=== PATIENT | male | born 1955 | race Caucasian/White ===

== ENCOUNTER 2017-11-23 15:49 | Observation (INO) ==
[2017-11-23 17:07] LABS: Basophils # 0.1 K/mcL (0.0-0.2); Basophils % 1.4 %; Eosinophils # 0.7 K/mcL (0.0-0.6); Eosinophils % 8.2 %; Hemoglobin 15.5 g/dL (12.9-16.9); Immature Granulocytes % 0.8 % (0-4); Lymphocytes # 2.1 K/mcL (0.6-4.6); Lymphocytes % 24.8 %; Mean Corpuscular Volume 91.1 fL (83.0-100.0); Monocytes # 0.9 K/mcL (0.0-1.3); Monocytes % 10.3 %; Neutrophils # 4.5 K/mcL (1.6-8.9); Platelet Count 264 K/mcL (140-400); Red Blood Count 5.16 M/mcL (4.19-5.50); Segmented Neutrophils % 54.5 %
[2017-11-23 17:12] LABS: BUN/Creatinine Ratio 11 (6-26); Blood Urea Nitrogen 12 mg/dL (6-20); Calcium 9.3 mg/dL (8.6-10.3); Carbon Dioxide 29 mEq/L (23-29); Chloride 109 mEq/L (98-107); Glucose 116 mg/dL (70-105); Osmolality,Calculated 295 (280-300); Potassium 4.7 mEq/L (3.5-5.1); Sodium 142 mEq/L (136-145); Troponin I < 0.03 ng/mL (< 0.04); eGFR For African Americans > 60 (> 60); eGFR For Non-African Americans > 60 (> 60)
--- NOTE | 2017-11-23 17:31 | Emergency Department Note ---
Disposition Clinical Impression: Unsteady Disposition: Admitted As Inpatient Condition: Fair Dizziness HPI - General Chief Complaint: ED Dizziness Stated Complaint: dizziness Time Seen by Provider: 11/23/17 15:58 Source: patient Mode of arrival: ambulatory Limitations: no limitations Nursing Notes Reviewed: Yes Vital Signs Reviewed: Yes - History of Present Illness HPI Narrative: 61 yo M reprots to the ED c/o unsteadiness on his feet since waking up this morning. Patient reports being unsteady on his feet as soon as his feet hit the floor getting out of bed. He denies focal weakness, numbness, or tingling, diplopia, slurred speech. He reports blurry vision, and feeling like he was drunk but denies any ETOH consumption. He reports symptoms are getting better, but still persist. Still unsteady feeling when sitting still, but worse with movement/when on his feet. He reports similar sxs years ago with an inner ear infection. He states that the room was spinning in the morning, but is no longer spinning, but still feels unsteady. Patient went to his pcp this afternoon and his pcp sent him to ED for further testing with concerns of possible TIA. Pt Subjective Complaint: dizziness, difficulty walking, other (unsteadiness on his feet) Onset (ago): hour(s) (since waking this morning.) Timing: awoke with symptoms Description: off-balance Worsens with: movement Associated symptoms: Reports: ataxia, vision changes (blurry vision). Denies: chest pain, confusion, fever, chills, shortness of breath, syncope, nausea, vomiting - Related Data Allergies Allergy/AdvReac Type Severity Reaction Status Date / Time No Known Allergies Allergy Verified 11/23/17 15:54 Past Medical History - Past Medical History Medical history: Reports: hyperlipidemia, RA - Social History Smoking Status: Never smoker Alcohol use: Reports: none Drug use: Reports: none Physical Exam - General Limitations: no limitations General appearance: alert, in no apparent distress - Head Head exam: atraumatic, normocephalic - Eye Eye exam: Present: PERRL, EOMI, nystagmus (left beating) - ENT ENT exam: normal oropharynx, mucous membranes moist, TM's normal bilaterally, normal external ear exam - Neck Neck exam: Present: full ROM, trachea midline - Chest Chest inspection: Present: symmetric chest wall rise. Absent: tenderness - Respiratory Respiratory exam: Present: normal lung sounds bilaterally. Absent: respiratory distress - Cardiovascular Cardiovascular exam: Present: regular rate, normal rhythm - Abdominal Exam Abdominal exam: Present: soft, Non-Tender - Extremities Exam Extremities exam: Present: full ROM. Absent: tenderness - Neurological Exam Neurological exam: Present: alert, oriented X3, CN II-XII intact, motor sensory deficit, reflexes normal, other (Finger to nose and heel to bland intact, Rapid alternating movements in tact. no pronator drift. Patient becomes unblanced during rhomberg testing. ) - Psychiatric Psychiatric exam: Present: normal affect, normal mood - Skin Skin exam: Present: warm, dry Course - Reevaluation(s) Reevaluation #1: CT head normal, lab work normal. Discussed admission with patient for further stroke work up rule out. Patient refusing. Reevaluation #2: Rediscussed admission with patient. Patient consents for admission. - Consultations Consultation #1: Discussed case with communication equipment mechanic neurologist. He strongly advises patient stay for admission and work up. Requesting CTA head. if being discharge AMA Time: 17:36 Vital Signs Temperature 97.9 F 11/23/17 15:51 Pulse Rate 86 11/23/17 15:51 Respiratory Rate 14 11/23/17 15:51 Blood Pressure 122/81 11/23/17 15:51 O2 Sat by Pulse Oximetry 94 11/23/17 15:51 Temperature 97.9 F 11/23/17 15:51 Pulse Rate 86 11/23/17 15:51 Respiratory Rate 14 11/23/17 15:51 Blood Pressure 122/81 11/23/17 15:51 O2 Sat by Pulse Oximetry 94 11/23/17 15:51 Oxygen Delivery Oxygen Delivery Room Air Dizziness - MDM Narrative Medical decision making narrative: Patient's presentation is concerning for CVA/TIA. CT head normal, lab work normal. Will admit for full work up. - Differential Diagnosis Likely: benign paroxysmal positional vertigo, cerebrovascular accident, acute vestibular neuronitis, transient cerebral ischemia, cerebellar infarct - Lab Data Result diagrams: 11/23/17 16:38 11/23/17 16:38 Lab Results 11/23/17 11/23/17 Range/Units 16:38 16:38 WBC 8.3 (4.3-11.1) K/mcL RBC 5.16 (4.19-5.50) M/mcL Hgb 15.5 (12.9-16.9) g/dL Hct 47.0 (37.5-50.1) % MCV 91.1 (83.0-100.0) fL MCH 30.0 (28.0-33.3) pg MCHC 33.0 (31.6-35.5) g/dL RDW 14.0 (11.5-14.5) % Plt Count 264 (140-400) K/mcL MPV 10.0 (9.4-12.4) fL Immature Gran % 0.8 (0-4) % Seg Neutrophils % 54.5 % Lymphocytes % 24.8 % Monocytes % 10.3 % Eosinophils % 8.2 % Basophils % 1.4 % Neutrophils # 4.5 (1.6-8.9) K/mcL Lymphocytes # 2.1 (0.6-4.6) K/mcL Monocytes # 0.9 (0.0-1.3) K/mcL Eosinophils # 0.7 H (0.0-0.6) K/mcL Basophils # 0.1 (0.0-0.2) K/mcL Sodium 142 (136-145) mEq/L Potassium 4.7 (3.5-5.1) mEq/L Chloride 109 H (98-107) mEq/L Carbon Dioxide 29 (23-29) mEq/L BUN 12 (6-20) mg/dL Creatinine 1.14 (0.70-1.30) mg/dL Est GFR ( Amer) > 60 (> 60) Est GFR (Non-Af Amer) > 60 (> 60) BUN/Creatinine Ratio 11 (6-26) Glucose 116 H (70-105) mg/dL Calculated Osmolality 295 (280-300) Calcium 9.3 (8.6-10.3) mg/dL Troponin I < 0.03 (< 0.04) ng/mL
[2017-11-23] MEDS ORDERED: Isovue-370 500 ML INFUS..BTL IV ONE (17:35)
[2017-11-23] MEDS ORDERED: Naloxone 0.4 MG/ML INJ IVP PRN (22:43)
[2017-11-23] MEDS ORDERED: Acetaminophen 325 MG TABLET PO PRN (22:43)
--- NOTE | 2017-11-23 22:56 | Internal Med History&Physical ---
Date of Encounter: 11/23/17 Time of Encounter: 21:30 Internal Medicine - H&P: HPI Chief complaint: vertigo; dizziness Admitted From: Emergency Dept Plans for Post Hospital Care: Home History of present illness: Mr. Nguyễn is a 61 year old male who presents to ER with complaints of sudden onset of vertigo this morning. He awoke from bed and stood up and felt as although the room was spinning on him. He had to lie down and his symptoms resolved several minutes thereafter. Upon standing, symptoms recurred again and he was unable to get ready and prepare for work. He therefore called in sick to work. He tried to "sleep it off". However, symptoms persisted and he came to ER for evaluation. Workup in ER was negative, including CT of the head and CT angiogram of the head. He was therefore admitted to hospitalist service for further workup and care. Unfortunately, patient never did have an EKG performed in the ER despite his symptoms noted above and bradycardia I noted. Upon my assessment of the patient, he is in no distress and resting in bed comfortably. However, if I sit him up, he does become symptomatic again as before, and he does have some subtle nystagmus. He denies any chest pain, shortness of breath, palpitations, and racing heartbeats. He denies any vomiting or diarrhea. He has some sinus congestion. He denies any numbness, weakness, or paralysis. He denies any dysarthria or any problems swallowing foods. He has had vertigo before in his 20s, and he feels as though he has recurrence of vertigo again now. As I examine him and assess him, I noticed on telemetry that he is having runs of bradycardia with heart rate in the 50s and appears to be in sinus rhythm. However, there is no EKG to confirm sinus bradycardia. He denies any history of heart disease or any dysrhythmias. Past Med Surg Social Fam HX - Past Medical History Attestation: Yes The following information was validated with the patient. Source: patient, old records reviewed Medical history: hyperlipidemia, RA Psychiatric history: no psych history - Past Surgical History Surgical History: other (chest tubes for spontaneous PTX) - Social History Smoking Status: Never smoker Alcohol use: none Drug use: none Occupational status: employed Current living situation: Home, With Family Activity Level: Independent ambulation Recent Out of Country Travel Within the Last 8 Weeks: No - Family History Mother Hx Family Cardiac Disorders: No Hx Family Neurologic Disorders: No Father Hx Family Cardiac Disorders: No Hx Family Neurologic Disorders: No Internal Medicine - H&P: Meds Albuterol Sulfate [Proair Hfa] 2 puff IH Q4H PRN 11/23/17 [History] Budesonide/Formoterol 160/4.5 [Symbicort 160/4.5] 2 puff IH BIDR 11/23/17 [ History] Celecoxib [Celebrex] 200 mg PO DAILY 11/23/17 [History] Ezetimibe/Simvastatin [Vytorin 10-20 mg Tablet] 1 tab PO DAILY 11/23/17 [History ] Folic Acid 1 mg PO DAILY 11/23/17 [History] InFLIXimab [Remicade] 100 mg IVPB AD 11/23/17 [History] Methotrexate [Methotrexate] 0.8 ml IJ QWEEK 11/23/17 [History] 3 Allergy/AdvReac Type Severity Reaction Status Date / Time No Known Allergies Allergy Verified 11/23/17 18:10 - Constitutional Constitutional: no chills, no fever(s), no night sweats - EENT Eyes: blurry vision (during vertigo symptoms), no diplopia Ears: no ear pain, no tinnitus Nose, mouth and throat: nasal congestion, nasal discharge, sinus pressure, no sore throat - Cardiovascular Cardiovascular ROS IM: no chest pain, no diaphoresis, no dyspnea, no dyspnea on exertion, no orthopnea, no palpitations, no paroxysmal nocturnal dyspnea - Respiratory Respiratory: no cough, no dyspnea, no dyspnea on exertion, no chest congestion, no excessive phlegm production, no change in phlegm color, no pain with cough - Gastrointestinal Gastrointestinal: no abdominal pain, no diarrhea, no hematemesis, no hematochezia, no melena, no nausea, no vomiting - Genitourinary Genitourinary ROS male: no dysuria, no flank pain, no hematuria - Musculoskeletal Musculoskeletal ROS IM: no arthralgias, no back pain, no muscle cramps, no muscle weakness - Integumentary Integumentary IM: no rash, no jaundice - Neurological Neurological ROS: dizziness, vertigo, no abnormal speech, no focal weakness, no frequent falls, no headache(s), no numbness, no paresthesias, no tingling - Psychiatric Psychiatric: no anxiety, no depression - Endocrine Endocrine IM: no polydipsia, no polyuria - Hematologic/Lymphatic Hematologic/Lymphatic: no easy bruising, no lymphadenopathy - Allergic/Immunologic Allergic/Immunologic: no wheezing, no GI upset with certain foods - Constitutional Vitals: Temp Pulse Resp BP Pulse Ox 98.4 F 66 16 121/86 97 11/23/17 20:44 11/23/17 20:44 11/23/17 20:44 11/23/17 20:44 11/23/17 20:44 General appearance: Present: cooperative, A&O X 3, pleasant, no acute distress, answers questions appropriately - Head Head exam: Present: atraumatic, normal inspection - Eye Eye exam: Present: EOMI, normal appearance, PERRL. Absent: scleral icterus Pupils: Present: normal accommodation - ENT ENT exam: Present: mucous membranes dry, normal exam, normal oropharynx Additional comments: nasal congestion and mild maxillary sinus tenderness - Neck Neck exam general surgery: Present: full ROM, supple. Absent: tenderness, nuchal rigidity, thyromegaly - Respiratory Respiratory exam: Present: CTAB. Absent: chest wall tenderness, rales, respiratory distress, rhonchi, wheezes - Cardiovascular Cardiovascular exam: Present: bradycardia (HR 50's), RRR, +S1, +S2. Absent: diastolic murmur, systolic murmur - GI/Abdominal GI/Abdominal exam: Present: normal bowel sounds, soft. Absent: guarding, hepatomegaly, mass, rebound, splenomegaly, tenderness - Extremities Exam Extremities exam: Present: full ROM, normal capillary refill, normal inspection , warm, radial pulses palpable and symmetrical. Absent: calf tenderness, joint swelling, pedal edema, tenderness - Back Exam Back exam: Present: normal inspection. Absent: CVA tenderness (L), CVA tenderness (R) - Neurological Exam Neurological exam: Present: alert, CN II-XII intact, oriented X3, no focal deficits, strengths equal and symetr throughout. Absent: motor sensory deficit , facial droop, speech deficit Additional comments: normal finger to nose testing and heel to bland testing; + nystagmus upon sitting up from lying position - Psychiatric Psychiatric exam: Present: normal affect, normal mood - Skin Skin exam: Present: dry, warm. Absent: rash Internal Med - H&P Results - Labs CBC & Chem 7: 11/23/17 16:38 11/23/17 16:38 - Diagnostic Studies CT scan - head Status: image reviewed by me (ethmoid sinusitis; negative otherwise; reprot reviewed as well) Other Images Additional comments: CTA head -- report reviewed; negative - Assessment and plan (1) Vertigo Current Visit: Yes Status: Acute Assessment and plan: 1. Will check MRI brain, EHCO, and Carotid Dopplers to rule out cerebellar stroke. However, history and exam suggest vertigo. 2. Will order serial neurochecks to monitor closely. 3. Will start ASA and continue STATIN per home dosing. (2) Bradycardia Current Visit: Yes Status: Acute Assessment and plan: 1. Will order EKG as this not yet done in ER. 2. Continue to monitor on telemetry -- appears to be sinus bradycardia. 3. If symptomatic, he may need Cardiology consult. With his rheumatoid arthritis, he is at risk for conduciton disease and may need pacer. (3) Sinusitis Current Visit: Yes Status: Acute Assessment and plan: 1. Will place on Omnicef PO. Qualifiers: Sinusitis location: ethmoidal Chronicity: subacute Qualified Code(s): J01.20 - Acute ethmoidal sinusitis, unspecified (4) Asthma Current Visit: Yes Status: Chronic Assessment and plan: 1. Continue home MDI's. 2. Will use aerosols as needed. Qualifiers: Asthma severity: mild Asthma persistence: persistent Asthma complication type: uncomplicated Qualified Code(s): J45.30 - Mild persistent asthma, uncomplicated (5) DVT prophylaxis Current Visit: Yes Status: Acute Assessment and plan: 1. Heparin SQ.
[2017-11-24] MEDS: Cefdinir 300 MG CAPSULE PO SCH ×2 (00:26→08:41)
[2017-11-24] MEDS: *HR* Heparin 5,000 UNIT/ML VIAL SQ SCH ×2 (00:26→05:43)
[2017-11-24 05:52] LABS: Hematocrit 46.9 % (37.5-50.1); Immature Granulocytes % 0.9 % (0-4); Lymphocytes % 30.9 %; Mean Corpuscular HGB Conc 34.1 g/dL (31.6-35.5); Mean Corpuscular Hemoglobin 31.1 pg (28.0-33.3); Mean Corpuscular Volume 91.1 fL (83.0-100.0); Mean Platelet Volume 9.9 fL (9.4-12.4); Platelet Count 238 K/mcL (140-400); Red Blood Count 5.15 M/mcL (4.19-5.50); Segmented Neutrophils % 48.2 %
[2017-11-24 05:53] LABS: Basophils # 0.1 K/mcL (0.0-0.2); Basophils % 1.6 %; Eosinophils # 0.7 K/mcL (0.0-0.6); Eosinophils % 9.4 %; Lymphocytes # 2.3 K/mcL (0.6-4.6); Monocytes # 0.7 K/mcL (0.0-1.3); Neutrophils # 3.6 K/mcL (1.6-8.9)
[2017-11-24 06:00] LABS: INR 1.1; Prothrombin Time 11.4 Seconds (9.4-12.1)
[2017-11-24 06:16] LABS: Alanine Aminotransferase 19 Units/L (7-52); Albumin 4.1 g/dL (3.5-5.7); Albumin/Globulin Ratio 1.8 (1.1-2.2); Alkaline Phosphatase 65 Units/L (34-104); Aspartate Amino Transferase 17 Units/L (13-39); BUN/Creatinine Ratio 10 (6-26); Bilirubin,Total 0.8 mg/dL (0.3-1.0); Blood Urea Nitrogen 11 mg/dL (6-20); Carbon Dioxide 29 mEq/L (23-29); Chloride 107 mEq/L (98-107); Chol/HDL Ratio 4.2 (0-4.9); Cholesterol 114 mg/dL (< 200); Globulin 2.3 g/dL (2.4-3.5); Glucose 107 mg/dL (70-105); HDL Cholesterol 27 mg/dL (40-59); LDL Cholesterol,Calculated 65 mg/dL (0-99); Magnesium 2.1 mg/dL (1.6-2.6); Osmolality,Calculated 288 (280-300); Sodium 139 mEq/L (136-145); Total Protein 6.4 g/dL (6.4-8.9); Triglycerides 109 mg/dL (< 150); eGFR For African Americans > 60 (> 60); eGFR For Non-African Americans > 60 (> 60)
[2017-11-24] MEDS ORDERED: VYTORIN PO SCH (09:00)
[2017-11-24] MEDS ORDERED: Folic Acid 1 MG TABLET PO SCH (09:00)
[2017-11-24] MEDS ORDERED: Aspirin 81 MG TAB.CHEW PO SCH (09:00)
[2017-11-24] MEDS ORDERED: Budesonide/Formoterol 160/4.5 MDI IH SCH (10:00)
--- NOTE | 2017-11-24 10:34 | Neurology - Consult Note ---
Date of Encounter: 11/24/17 Time of Encounter: 10:31 Assessment and Plan (1) BPPV (benign paroxysmal positional vertigo) Current Visit: Yes Status: Acute This presentation is entirely consistent with benign paroxysmal positional vertigo. His symptoms are worsened with movement and improved with quiescence. I find no evidence of a central mediated process on his neurologic exam. His neuroimaging studies were all unremarkable. I might recommend discharging this gentleman on meclizine along with an anti-emetics. I will reevaluate him at your request. Qualifiers: Qualified Code(s): H81.10 - Benign paroxysmal vertigo, unspecified ear History of Present Illness HPI: Chart was reviewed, patient was seen and examined, case was discussed last night with Dr. Barfield. Mr. Nguyễn is a very pleasant 61-year-old gentleman who apparently awakened in the morning of admission with complaints of dizziness. He apparently upon sitting without felt extremely vertiginous and he did describe the room felt like it was spinning. He did not seek medical attention immediately and apparently laid back down to see if it would improve. Symptoms persisted and he came to ED for further assessment. CT scan of the brain, and CT angiogram were completed last night. I did review both of the studies and agree that they were negative. I also reviewed the MRI scan of the brain which is negative as well. Patient's vertigo was extremely position dependent. Whenever he would attempt to move his symptoms would recur. This morning he feels much improved. He does feel a bit dizzy if he moves too abruptly. He denies ear pain or hearing loss. Denies headache denies visual changes denies speech difficulty. Past Med Surg Social Fam HX - Past Medical History Medical history: hyperlipidemia, RA Psychiatric history: no psych history - Past Surgical History Surgical History: other - Social History Smoking Status: Never smoker Alcohol use: none Drug use: none - Family History Mother Hx Family Cardiac Disorders: No Hx Family Neurologic Disorders: No Father Hx Family Cardiac Disorders: No Hx Family Neurologic Disorders: No Medications and Allergies Albuterol Sulfate [Proair Hfa] 2 puff IH Q4H PRN 11/23/17 [History] Budesonide/Formoterol 160/4.5 [Symbicort 160/4.5] 2 puff IH BIDR 11/23/17 [ History] Celecoxib [Celebrex] 200 mg PO DAILY 11/23/17 [History] Ezetimibe/Simvastatin [Vytorin 10-20 mg Tablet] 1 tab PO DAILY 11/23/17 [History ] InFLIXimab [Remicade] 100 mg IVPB AD 11/23/17 [History] Methotrexate [Methotrexate] 0.8 ml IJ QWEEK 11/23/17 [History] RX: Folic Acid 1 mg PO DAILY 11/23/17 [History] 3 Allergy/AdvReac Type Severity Reaction Status Date / Time No Known Allergies Allergy Verified 11/23/17 18:10 All Systems: The remainder of the systems were reviewed and are negative Review of Systems: The balance of the systems review was all negative. Physical Examination - Vital Signs Vital Signs: Initial Vital Signs Temp Pulse Resp BP Pulse Ox 97.9 F 86 14 122/81 94 11/23/17 15:51 11/23/17 15:51 11/23/17 15:51 11/23/17 15:51 11/23/17 15:51 - Neurologic Detailed motor examination: full strength in all major muscle groups Motor examination - right side: 5/5: deltoids, biceps, triceps, wrist flexion, wrist extension, dealer accounts investigator, hip flexors, tibialis Anterior, quadriceps, toe extension (EHL), plantarflexion Motor examination - left side: 5/5: deltoids, biceps, triceps, wrist flexion, wrist extension, hip flexors, dealer accounts investigator, quadriceps, tibialis Anterior, toe extension (EHL), plantarflexion Mental Status Examination: awake, alert, oriented to person, oriented to place, oriented to time, follows commands appropriately, answers questions appropriately, no agnosia, no aphasia, no aproxia Cranial nerve examination: PERRL, EOMI, visual phelps intact, corneal reflexes brisk symmetrically, sensory to face intact, mastication intact, no facial asymmetry is present, no dysarthria, hearing is intact symmetrically, soft palate elevates bilaterally upon phonation, gag reflex intact, flexes SCM and trapezius muscles symmetrically with full power, tongue protrudes midline, no atrophy or facial fasiculations present Cerebellar examination: no dysmetria, performs finger to nose and heel to bland symmetrically without ataxia, no gait ataxia, no truncal ataxia, no difficulty with rapid alternating movements Results - Laboratory Findings CBC and BMP: 11/24/17 05:40 11/24/17 05:40 Abnormal lab findings: Abnormal lab results Eosinophils # 0.7 K/mcL (0.0-0.6) H 11/24/17 05:40 Glucose 107 mg/dL (70-105) H 11/24/17 05:40 Globulin 2.3 g/dL (2.4-3.5) L 11/24/17 05:40 HDL Cholesterol 27 mg/dL (40-59) L 11/24/17 05:40 Consult Discharge Plan - Plan Referrals: Maurice Hamilton MD [Primary Care Provider] -
[2017-11-24 11:59] VITALS: BP 137/96
--- NOTE | 2017-11-24 12:12 | Discharge Summary ---
<Sergio Hurley - Last Filed: 11/24/17 12:09> - NOTES TO OUTPATIENT PROVIDER Notes to Outpatient Provider: Patient presented for vertigo that persisted for the better part of the day. By the time he was seen the following morning it had almost completely resolved. Brain MRI was negative for CVA. Patient had had an episode similar to this in the past and is most likely benign vertigo. We will discharge him with meclizine if he has recurrance. He was also noted to have some minor sinusitis and will be discharge with a continued course of antibiotics. Orders not resulted at time of discharge: Pending orders 11/23/17 22:00 EKG [ECG 12 lead ECG] [ECG] Stat 11/24/17 06:00 ECG 12 lead ECG [ECG] AM 0600 11/24/17 11:40 Troponin I Q6H Date of Encounter: 11/24/17 Time of Encounter: 10:00 - Discharge Diagnosis (1) Vertigo Priority: Primary Status: Resolved (2) Sinusitis Priority: Primary Status: Acute Qualifiers: Sinusitis location: ethmoidal Chronicity: subacute Qualified Code(s): J01.20 - Acute ethmoidal sinusitis, unspecified (3) Asthma Priority: Primary Status: Chronic Qualifiers: Asthma severity: mild Asthma persistence: persistent Asthma complication type: uncomplicated Qualified Code(s): J45.30 - Mild persistent asthma, uncomplicated (4) DVT prophylaxis Priority: Secondary Status: Acute (5) Bradycardia Priority: Primary Status: Chronic Hospital course: Mr. Nguyễn is a 61 year old male with prior medical history of rheumatoid arthritis, bradycardia, hyperlipidemia, and prior episode of vertigo presents to [facility] on 11/23/17 having had persistent vertigo obliteration of that day. He underwent an initial workup for a CVA and was found to have a negative head CTA and MRI. By the time he was seen the following morning it had almost completely resolved. He was seen by neurology who felt this was an episode of BPPV. Patient had had an episode similar to this in the past and is most likely benign vertigo. We will discharge him with meclizine and zofran if he has recurrence. He was also noted to have some minor sinusitis and will be discharge with a continued course of antibiotics. Discharge discussed with: patient - Time Spent with Patient Total time spent providing and/or coordinating discharge services: Greater than 30 minutes - Discharge Medications Prescriptions: Ondansetron [Zofran] 8 mg PO Q8HR PRN #30 tablet PRN Reason: Nausea Cefdinir [Omnicef] 300 mg PO BID #14 capsule Meclizine HCl [Verticalm] 25 mg PO QID PRN #40 tablet PRN Reason: Vertigo Home Medications: Albuterol Sulfate [Proair Hfa] 2 puff IH Q4H PRN 11/23/17 [History] Budesonide/Formoterol 160/4.5 [Symbicort 160/4.5] 2 puff IH BIDR 11/23/17 [ History] Celecoxib [Celebrex] 200 mg PO DAILY 11/23/17 [History] Ezetimibe/Simvastatin [Vytorin 10-20 mg Tablet] 1 tab PO DAILY 11/23/17 [History ] Folic Acid 1 mg PO DAILY 11/23/17 [History] InFLIXimab [Remicade] 100 mg IVPB AD 11/23/17 [History] Methotrexate 0.8 ml IJ QWEEK 11/23/17 [History] Cefdinir [Omnicef] 300 mg PO BID #14 capsule 11/24/17 [Rx] Meclizine HCl [Verticalm] 25 mg PO QID PRN #40 tablet 11/24/17 [Rx] Ondansetron [Zofran] 8 mg PO Q8HR PRN #30 tablet 11/24/17 [Rx] Allergies/Adverse Reactions: 3 Allergy/AdvReac Type Severity Reaction Status Date / Time No Known Allergies Allergy Verified 11/23/17 18:10 Date of admission: 11/23/17 19:39 Primary care physician: Maurice Hamilton MD Discharging clinician: Sergio Hurley Anticipated date of discharge: 11/24/17 - Constitutional Vitals: Temp Pulse Resp BP Pulse Ox 97.6 F 71 16 137/96 98 11/24/17 11:57 11/24/17 11:57 11/24/17 11:57 11/24/17 11:57 11/24/17 11:57 General appearance: Present: cooperative, A&O X 3, pleasant, no acute distress, answers questions appropriately Exam: General: Cooperative, pleasant, no acute distress, alert and oriented 3, answers questions appropriately HEENT: Normocephalic, atraumatic, Conjunctiva pink, sclera anicteric, EOMI, PERRL, oral mucosa moist, mild horizontal nystagmus appreciated Respiratory: No accessory muscle usage, clear to auscultation bilaterally, no wheezes/rhonchi/rales appreciated Cardiovascular: Regular rate and rhythm, S1 and S2 present, no murmurs/rubs/ gallops/clicks appreciated GI/abdominal: Nondistended, nontender, soft, normal bowel sounds, no peritoneal signs Extremities: No calf tenderness, no pedal edema appreciated, warm, lower extremity pulses palpable and symmetrical Neurological: Alert and oriented 3, strength in upper and lower extremities 5/ 5 bilaterally, gross sensation intact, cranial nerves II through XII without deficit, no return of symptoms upon standing, no facial droop, no focal deficits Skin: Dry, intact, normal color - Patient Status Disposition: Home, Self-Care Condition: Good Functional capacity at discharge: independent ambulation Overall status at discharge: patient is back to baseline - Discharge Instructions Instructions: Meclizine (By mouth), Ondansetron (By mouth), Cefdinir (By mouth) , Vertigo (DC), Acute Bacterial Rhinosinusitis (DC) Follow Up With: Maurice Hamilton MD [Primary Care Provider] - (please call to schedule follow up within 2-3 weeks) Additional Instructions: Please return to emergency room if worsened vertigo, development of headache, development of asymmetric weakness or sensory changes, or development vision changes. Please take all medications as prescribed: Cefdinir (Omnicef) 2 times a day for 7 days Meclizine up to 4 times a day as needed for vertigo Zofran up to 3 times a day as needed for nausea Please follow-up with your PCP in 2-3 weeks - Diet and Activity Activity: increase activity as tolerated Diet: advance to your usual diet <Jareth Serrato - Last Filed: 11/24/17 13:52> Orders not resulted at time of discharge: Pending orders 11/23/17 22:00 EKG [ECG 12 lead ECG] [ECG] Stat 11/24/17 06:00 ECG 12 lead ECG [ECG] AM 0600 Date of Encounter: 11/24/17 - Discharge Diagnosis (1) Vertigo Status: Resolved (2) Sinusitis Status: Acute Qualifiers: Sinusitis location: ethmoidal Chronicity: subacute Qualified Code(s): J01.20 - Acute ethmoidal sinusitis, unspecified (3) Asthma Status: Chronic Qualifiers: Asthma severity: mild Asthma persistence: persistent Asthma complication type: uncomplicated Qualified Code(s): J45.30 - Mild persistent asthma, uncomplicated (4) DVT prophylaxis Status: Acute (5) Bradycardia Status: Chronic Hospital course: Mr. Nguyễn is a 61 year old male - Time Spent with Patient Total time spent providing and/or coordinating discharge services: Date of admission: 11/23/17 19:39 Primary care physician: Maurice Hamilton MD - Constitutional Vitals: Temp Pulse Resp BP Pulse Ox 97.6 F 71 16 137/96 98 11/24/17 11:57 11/24/17 11:57 11/24/17 11:57 11/24/17 11:57 11/24/17 11:57 - Attending Attestation I examined this patient and my medical decision-making was reviewed with the Resident Physician on 11/24/17. I agree with the documented findings, disposition and treatment plan as described except to the extent set forth below. Admitted for vertigo. Exam unremarkable, no ENT symptoms. No nystagmus. CVA ruled out. ECHO showed LVEF 60-65%, mild LVH, mild MV prolapse without dysfunction, mild aortic root dilation. EKG unremarkable. MRi showed sinusitis. Carotid USS normal. Patient is stable to be discharged home on antibiotics and meclizine. Rest of details as in the resident physician's documentation
--- NOTE | 2017-11-26 13:12 | Electrocardiograph Report ---
[address] [address] Test Date: 2017-11-23 Pat Name: Sukhdev Nguyễn Department: 111 Room: 2NE17 Gender: M [employer]: : 1955 Requested By: Suresh Yarbrough MD Order Number: [id number] Reading MD: Esteban Mckeon Measurements Intervals [place] Rate: 59 P: 55 ND: 194 QRS: 38 QRSD: 105 T: 28 QT: 395 QTc: 395 Interpretive Statements SINUS BRADYCARDIA Electronically Signed On 11-26-2017 9:03:27 EDT by Esteban Mckeon
== END 2017-11-24 13:00 | disposition home or self-care (01) ==
LOC: 2NENU 15:49 → EMEROO 15:49 → 2NENU 19:47
PROVIDERS: ADMIT Hospitalist; ATTEND Hospitalist